=== PATIENT | male | born 1960 | race American Indian/Alaskan Native ===

== ENCOUNTER 2021-06-24 08:39 | Emergency (ER) | payer SELFPAY ==
[2021-06-24 09:16] VITALS: BP 143/81
--- NOTE | 2021-06-24 09:59 | Emergency Department Report ---
ED Extremity Problem HPI - General Chief complaint: Extremity Problem,Nontraumatic Stated complaint: LT KNEE PAIN Time Seen by Provider: 06/24/21 09:51 Source: patient Mode of arrival: Ambulatory Limitations: No Limitations - History of Present Illness Initial comments: 61-year-old -Citizen Of [place] male presents to the emergency room complaining of left knee pain and mild swelling. Patient reports that he had a knee replacement 3 weeks ago in [place] and was placed on Percocet. Patient states he had left and went to [place] for vacation for a week and then came back to [place] to have his sutures removed. Patient states he came down to [place] as he wanted to be where he was from. Patient reports he is not in physical therapy as he is doing therapy on his own. Patient denies any reinjury. Has not taken any cnna-imd-cddwqyq medications. And asking for Percocet for pain. MD Complaint: extremity pain Onset/Timin -: week(s) Location: left, knee History of Same: Yes -: Yes arthralgia Severity scale (0 -10): 8 Quality: aching Improves with: medication Worsens with: nothing Associated Symptoms: denies other symptoms - Related Data Allergies Allergy/AdvReac Type Severity Reaction Status Date / Time No Known Allergies Allergy Verified 06/24/21 09:11 ED Review of Systems ROS: Stated complaint: LT KNEE PAIN Other details as noted in HPI Comment: All other systems reviewed and negative ED Past Medical Hx - Past Medical History Previous Medical History?: No - Surgical History Past Surgical History?: No ED Physical Exam - General Limitations: No Limitations General appearance: alert, in no apparent distress, obese - Head Head exam: Present: atraumatic, normocephalic - Eye Eye exam: Present: normal appearance - ENT ENT exam: Present: normal external ear exam - Neck Neck exam: Present: full ROM - Respiratory Respiratory exam: Present: chest wall tenderness. Absent: accessory muscle use - Cardiovascular Cardiovascular Exam: Present: regular rate - Expanded Lower Extremity Exam Left Hip exam: Present: full ROM Upper Leg exam: Present: normal inspection, full ROM Knee exam: Present: full ROM, swelling. Absent: tenderness Ankle exam: Present: normal inspection, full ROM Foot/Toe exam: Present: normal inspection, full ROM Gait: Positive: observed and normal - Back Exam Back exam: Present: normal inspection - Neurological Exam Neurological exam: Present: alert, oriented X3, normal gait - Psychiatric Psychiatric exam: Present: normal affect, normal mood - Skin Skin exam: Present: warm, dry, intact, normal color. Absent: rash ED Course Vital Signs 06/24/21 09:11 Temperature 98 F Pulse Rate 81 Respiratory 16 Rate Blood Pressure 143/81 [Right] O2 Sat by Pulse 96 Oximetry ED Medical Decision Making - Medical Decision Making 61-year-old -Citizen Of [place] male presents to the emergency room complaining of left knee pain and mild swelling. Patient reports that he had a knee replacement 3 weeks ago in [place] and was placed on Percocet. Patient states he had left and went to [place] for vacation for a week and then came back to [place] to have his sutures removed. Patient states he came down to [place] as he wanted to be where he was from. Patient reports he is not in physical therapy as he is doing therapy on his own. Patient denies any reinjury. Has not taken any nolq-ldi-pnlketf medications. And asking for Percocet for pain. Patient does have a rash midline scar to his left knee. There is no warmth mild erythematous mild edema test does not look concerning for any infection. Full range of motion. Patient is amatory without difficulties. He is using no assistive devices. Discussed with patient that we would not be able to give him a refill on his Percocet. I did look patient up in the [facility] and there is no record of this patient having any prescriptions for narcotics. Discussed with patient he can take dvcd-vrt-ovtdthc ibuprofen or naproxen. Critical care attestation.: If time is entered above; I have spent that time in minutes in the direct care of this critically ill patient, excluding procedure time. ED Disposition Clinical Impression: Chronic pain of left knee Disposition: HOME / SELF CARE / HOMELESS Is pt being admited?: No Does the pt Need Aspirin: No Condition: Stable Instructions: Chronic Knee Pain, Adult, [id number] Additional Instructions: As that instructed is very important you follow back up with your orthopedic provider. I have also recommended you get into your physical therapy as this is what is going to improve your pain and your longevity of your knee replacement. You can take zdex-skj-ynswumz ibuprofen naproxen or Tylenol for pain management. I recommend ice therapy at least 2-3 times a day and especially after active motion. Referrals: SKY SMITH MD [Staff Physician] - 3-5 Days Time of Disposition: 10:10
== END 2021-06-24 10:17 | disposition home or self-care (01) ==
LOC: ED 08:39
DX: G89.29 Other chronic pain (principal); M25.562 Pain in left knee
CPT/HCPCS: 99282